=== PATIENT | male | born 1975 | race Caucasian/White ===

== ENCOUNTER 2018-12-14 11:58 | Emergency (ER) | payer BC ==
[~2018-12-14] VITALS: Ht 185.4 cm; Wt 133.8 kg
--- NOTE | 2018-12-14 12:28 | PHYS DOC ---
Past Medical History Past Medical History: No Pertinent History Past Surgical History: Cholecystectomy, Gastric Bypass, Other Additional Past Surgical Histo: lap band and removal Alcohol Use: Occasionally Drug Use: None Adult General Chief Complaint Chief Complaint: DIZZY/LIGHT HEADED HPI HPI Patient is a 43 year old male with no past medical history presents to ED complaining of dizziness and nausea since yesterday. 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 States he woke up on Friday and felt tired and nauseous. States that he has been vomiting and dizzy. States he tried to work today but could not work. States he thinks he is really dehydrated. Denies abdominal pain, fever, diarrhea, blood in stool, chest pain, shortness of breath, back pain, neck pain, or chills. Review of Systems Review of Systems Constitutional: Denies fever or chills [] Eyes: Denies change in visual acuity, redness, or eye pain [] HENT: Denies nasal congestion or sore throat [] Respiratory: Denies cough or shortness of breath [] Cardiovascular: No additional information not addressed in HPI [] GI: Complains of nausea and vomiting. Denies abdominal pain, bloody stools or diarrhea [] : Denies dysuria or hematuria [] Musculoskeletal: Denies back pain or joint pain [] Integument: Denies rash or skin lesions [] Neurologic: Complains of dizziness. Denies headache, focal weakness or sensory changes [] All other systems were reviewed and found to be within normal limits, except as documented in this note. Current Medications Current Medications Current Medications Medications (Trade) Dose Ordered Sig/Lucila Start Time Stop Time Status Last Admin Dose Admin Diphenhydramine HCl (Benadryl) 25 mg 1X ONCE 12/14/18 14:00 12/14/18 14:01 DC 12/14/18 14:25 25 MG Metoclopramide HCl (Reglan Vial) 10 mg 1X ONCE 12/14/18 14:00 12/14/18 14:01 DC 12/14/18 14:25 10 MG Ondansetron HCl (Zofran) 4 mg 1X ONCE 12/14/18 12:30 12/14/18 12:31 DC 12/14/18 13:09 4 MG Pantoprazole Sodium (PROTONIX VIAL for IV PUSH) 40 mg 1X ONCE 12/14/18 14:15 12/14/18 14:16 DC 12/14/18 14:25 40 MG Sodium Chloride 1,000 ml @ 1,000 mls/hr 1X ONCE 12/14/18 12:30 12/14/18 13:29 DC 12/14/18 13:09 1,000 MLS/HR Allergies Allergies Allergies Coded Allergies Type Severity Reaction Last Updated Verified No Known Drug Allergies 12/14/18 No Physical Exam Physical Exam Constitutional: Well developed, well nourished, no acute distress, non-toxic appearance. [] HENT: Normocephalic, atraumatic Eyes: PERRLA, EOMI, conjunctiva normal, no discharge. [] Neck: Normal range of motion, no tenderness, supple, no stridor. [] Cardiovascular:Heart rate regular rhythm, no murmur [] Lungs & Thorax: Bilateral breath sounds clear to auscultation [] Abdomen: Bowel sounds normal, soft, no tenderness, no masses, no pulsatile masses. [] Skin: Warm, dry, no erythema, no rash. [] Back: No tenderness, no CVA tenderness. [] Extremities: No tenderness, no cyanosis, no clubbing, ROM intact, no edema. [] Neurologic: Alert and oriented X 3, normal motor function, normal sensory function, no focal deficits noted. [] Psychologic: Affect normal, judgement normal, mood normal. [] Current Patient Data Vital Signs Vital Signs Date Time Temp Pulse Resp B/P (MAP) Pulse Ox O2 Delivery O2 Flow Rate FiO2 12/14/18 12:10 98.1 56 18 114/72 (86) 99 Room Air 98.1 Lab Values Laboratory Tests Test 12/14/18 12:55 White Blood Count 5.4 x10^3/uL (4.0-11.0) Red Blood Count 4.58 x10^6/uL (4.30-5.70) Hemoglobin 15.1 g/dL (13.0-17.5) Hematocrit 43.5 % (39.0-53.0) Mean Corpuscular Volume 95 fL (79-100) Mean Corpuscular Hemoglobin 33 pg (25-35) Mean Corpuscular Hemoglobin Concent 35 g/dL (31-37) Red Cell Distribution Width 12.7 % (11.5-14.5) Platelet Count 163 x10^3/uL (140-400) Neutrophils (%) (Auto) 70 % (31-73) Lymphocytes (%) (Auto) 24 % (24-48) Monocytes (%) (Auto) 5 % (0-9) Eosinophils (%) (Auto) 0 % (0-3) Basophils (%) (Auto) 0 % (0-3) Neutrophils # (Auto) 3.8 x10^3/uL (1.8-7.7) Lymphocytes # (Auto) 1.3 x10^3/uL (1.0-4.8) Monocytes # (Auto) 0.3 x10^3/uL (0.0-1.1) Eosinophils # (Auto) 0.0 x10^3/uL (0.0-0.7) Basophils # (Auto) 0.0 x10^3/uL (0.0-0.2) Sodium Level 144 mmol/L (136-145) Potassium Level 3.9 mmol/L (3.5-5.1) Chloride Level 107 mmol/L (98-107) Carbon Dioxide Level 27 mmol/L (21-32) Anion Gap 10 (6-14) Blood Urea Nitrogen 12 mg/dL (8-26) Creatinine 0.8 mg/dL (0.7-1.3) Estimated GFR (Cockcroft-Gault) 106.5 BUN/Creatinine Ratio 15 (6-20) Glucose Level 104 mg/dL (70-99) H Calcium Level 9.0 mg/dL (8.5-10.1) Total Bilirubin 2.2 mg/dL (0.2-1.0) H Aspartate Amino Transferase (AST) 15 U/L (15-37) Alanine Aminotransferase (ALT) 17 U/L (16-63) Alkaline Phosphatase 87 U/L (46-116) Troponin I Quantitative < 0.017 ng/mL (0.000-0.055) Total Protein 6.2 g/dL (6.4-8.2) L Albumin 3.6 g/dL (3.4-5.0) Albumin/Globulin Ratio 1.4 (1.0-1.7) Laboratory Tests 12/14/18 12:55 Laboratory Tests 12/14/18 12:55 EKG EKG [] Radiology/Procedures Radiology/Procedures []PROCEDURE: CHEST AP ONLY EXAM: CHEST 1 VIEW History: Dizziness COMPARISON: None available. TECHNIQUE: Single portable radiograph of the chest FINDINGS: The cardiac silhouette is unremarkable. The lungs are clear bilaterally. The costophrenic sulci are clear and well demarcated. IMPRESSION: No radiographic evidence of an acute cardiopulmonary process. PROCEDURE: CT HEAD WO CONTRAST CT HEAD INDICATION: Dizziness COMPARISON: None Available. Exposure: One or more of the following individualized dose reduction techniques were utilized for this examination: 1. Automated exposure control 2. Adjustment of the mA and/or kV according to patient size 3. Use of iterative reconstruction technique TECHNIQUE: 5 mm contiguous axial images were obtained from the skull base to the vertex in both bone and soft tissue algorithm. FINDINGS: No abnormal attenuation within the brain parenchyma. No evidence of acute intracranial hemorrhage. No extra-axial fluid collections. No mass effect or midline shift. Ventricular size is appropriate. Basal cisterns are patent. No fractures identified.Mcbride-white differentiation is preserved.Globes and orbits are within normal limits. Paranasal sinuses and mastoid air cells are clear. IMPRESSION: No acute intracranial findings. Course & Med Decision Making Course & Med Decision Making Pertinent Labs and Imaging studies reviewed. (See chart for details) []Discussed lab and imaging findings with patient. Patient's symptoms improved in the ED. States he is feeling much better. No focal neural deficits. Patient able to ambulate without assistance. Patients symptoms most likely self-limiting and emphasized proper hydration and rest. Discussed follow-up with PCP this week. Discussed reasons to return to the ED. Patient understands and agrees with plan. Dragon Disclaimer Dragon Disclaimer This electronic medical record was generated, in whole or in part, using a voice recognition dictation system. Departure Departure Impression: Primary Impression: Dehydration Additional Impression: Nausea Disposition: 01 HOME, SELF-CARE Condition: IMPROVED Referrals: NO PCP (PCP) LUCÍA MILLER MD Patient Instructions: Dehydration, Adult, Nausea, Adult Scripts Ondansetron Hcl (ZOFRAN) 4 Mg Tablet 1 TAB PO Q6HRS, #15 TAB Prov: JED GUEVARA 12/14/18 Problem Qualifiers JED GUEVARA Dec 14, 2018 12:28
[2018-12-14] MEDS ORDERED: IV NORMAL SALINE 1000ML BAG 1,000 ML IV ONE (12:30)
[2018-12-14] MEDS ORDERED: ONDANSETRON PF 4 MG/2 ML VIAL. IV ONE (12:30)
--- NOTE | 2018-12-14 12:49 | RAD ---
CT HEAD INDICATION: Dizziness COMPARISON: None Available. Exposure: One or more of the following individualized dose reduction techniques were utilized for this examination: 1. Automated exposure control 2. Adjustment of the mA and/or kV according to patient size 3. Use of iterative reconstruction technique TECHNIQUE: 5 mm contiguous axial images were obtained from the skull base to the vertex in both bone and soft tissue algorithm. FINDINGS: No abnormal attenuation within the brain parenchyma. No evidence of acute intracranial hemorrhage. No extra-axial fluid collections. No mass effect or midline shift. Ventricular size is appropriate. Basal cisterns are patent. No fractures identified.Mcbride-white differentiation is preserved.Globes and orbits are within normal limits. Paranasal sinuses and mastoid air cells are clear. IMPRESSION: No acute intracranial findings. Electronically signed by: Mingo Dawson MD (12/14/2018 12:47 PM) [id number]
--- NOTE | 2018-12-14 12:52 | RAD ---
EXAM: CHEST 1 VIEW History: Dizziness COMPARISON: None available. TECHNIQUE: Single portable radiograph of the chest FINDINGS: The cardiac silhouette is unremarkable. The lungs are clear bilaterally. The costophrenic sulci are clear and well demarcated. IMPRESSION: No radiographic evidence of an acute cardiopulmonary process. Electronically signed by: Mingo Dawson MD (12/14/2018 12:49 PM) [id number]
[2018-12-14 13:04] LABS: BASO % 0 % (0-3); EOS % 0 % (0-3); HEMATOCRIT 43.5 % (39.0-53.0); HEMOGLOBIN 15.1 g/dL (13.0-17.5); LYMPH # 1.3 x10^3/uL (1.0-4.8); LYMPH % 24 % (24-48); MEAN CORPUSCULAR HEMOGLOBIN 33 pg (25-35); MEAN CORPUSCULAR HGB CONC 35 g/dL (31-37); MEAN CORPUSCULAR VOLUME 95 fL (79-100); MONO # 0.3 x10^3/uL (0.0-1.1); MONO % 5 % (0-9); NEUT # 3.8 x10^3/uL (1.8-7.7); NEUT % 70 % (31-73); PLATELET COUNT 163 x10^3/uL (140-400); RED BLOOD COUNT 4.58 x10^6/uL (4.30-5.70); RED CELL DISTRIBUTION WIDTH 12.7 % (11.5-14.5); WHITE BLOOD COUNT 5.4 x10^3/uL (4.0-11.0)
[2018-12-14 13:14] LABS: CREATININE 0.8 mg/dL (0.7-1.3); GFR 106.5; POTASSIUM 3.9 mmol/L (3.5-5.1)
[2018-12-14 13:19] LABS: ALBUMIN 3.6 g/dL (3.4-5.0); ALBUMIN/GLOBULIN RATIO 1.4 (1.0-1.7); TOTAL BILIRUBIN 2.2 mg/dL (0.2-1.0); TOTAL PROTEIN 6.2 g/dL (6.4-8.2)
[2018-12-14] MEDS ORDERED: diphenhydrAMINE 50 MG/ML VIAL IVP ONE (14:00)
[2018-12-14] MEDS ORDERED: METOCLOPRAMIDE HCL 10 MG/2 ML VIAL. IV ONE (14:00)
[2018-12-14] MEDS ORDERED: PANTOPRAZOLE IV PUSH 40 MG VIAL. IVP ONE (14:15)
[2018-12-14 14:36] VITALS: BP 121/76
[2018-12-14] MEDS ORDERED: ONDA4TAB7 PO (14:50)
--- NOTE | 2018-12-14 15:55 | EKG ---
[facility] [address] [place] [address] Test Date: 2018-12-14 Test Time: 12:30:04 Pat Name: TUAN SCHWARZ Department: Room: Gender: [employer]: : [id number] Requested By: JED GUEVARA Order Number: [id number] Reading MD: Measurements Intervals [place] Rate: 52 P: 24 MT: 198 QRS: 12 QRSD: 82 T: 21 QT: 384 QTc: 359 Interpretive Statements SINUS ARRHYTHMIA OTHERWISE NORMAL ECG RI6.01 No previous ECG available for comparison
== END 2018-12-14 14:59 | disposition home or self-care (01) ==
LOC: ER 11:58
DX: E86.0 Dehydration (principal); R42 Dizziness and giddiness; R11.2 Nausea with vomiting, unspecified; Z90.49 Acquired absence of other specified parts of digestive tract
CPT/HCPCS: 36415; 70450; 71045; 80053; 84484; 85025; 93005; 96361; 96374; 96375; 99285; C9113; J1200; J2405; J2765; J7030